=== PATIENT | female | born 1960 | race Hispanic/Latino ===

== ENCOUNTER 2017-05-08 10:16 | Outpatient (CLI) | payer OTHER ==
[2017-05-08 11:51] LABS: Blood Urea Nitrogen 14 mg/dL (7-17)
[2017-05-08] MEDS ORDERED: NACL ONE (11:53)
--- NOTE | 2017-05-08 13:12 | Cat Scan Report ---
CT ABDOMEN WITHOUT AND WITH CONTRAST INDICATION: Adrenal mass. COMPARISON: None similar. FINDINGS: Abdomen CT performed before and after intravenous administration of 100 cc of Omnipaque 300. LUNG BASES: Subtle nonspecific right lower lung pleural-based nodularity/possible scarring as on axial series 2, images 50-88, measuring up to 1.3 cm on axial image 56. Normal heart size. No effusions. Right hemidiaphragm slightly elevated. Nonspecific distal esophageal wall prominence/thickening, not excluded for gastroesophageal reflux and/or hiatal hernia, amongst others. ABDOMEN: Liver, spleen, gallbladder, pancreas, adrenals, nonaneurysmal abdominal aorta, IVC and kidneys appear within normal limits bilaterally without hydronephrosis or ascites. Few small, subcentimeter mesenteric and retroperitoneal lymph nodes. Right hepatic lobe approximately 19 cm in midclavicular length. Nonopacified GI tract evaluation limited, though grossly nonobstructive. Normal appendix. Mild to moderate colonic stool possible constipation. Mild distal descending colon diverticulosis. Fat-containing umbilical hernia with a transverse neck of 1 cm. Asymmetrically sclerotic right iliac bone partially imaged. Lower lumbar facet arthropathy. Mild multilevel thoracic spine degenerative spurring as well. CONCLUSION: 1. No acute abdominal CT abnormality. Specifically, no adrenal mass identified. Correlation with any priors that raised the concern for an adrenal mass would also be helpful, if available. 2. Various other incidental findings, including those at the lung bases, small fat-containing umbilical hernia, diverticulosis and possible Paget's disease involving the right iliac bone, amongst others, as described. Please correlate. Thank you for the opportunity to participate in this patient's care.
== END 2017-05-08 10:17 | disposition home or self-care (01) ==
LOC: CT 10:16
PROVIDERS: ATTEND Internal Medicine Endocrinology, Diabetes & Metabolism
DX: E27.9 Disorder of adrenal gland, unspecified (principal); K42.9 Umbilical hernia without obstruction or gangrene; K57.90 Diverticulosis of intestine, part unspecified, without perforation or abscess without bleeding
CPT/HCPCS: 36415; 74170; 82565; 84520; Q9967